=== PATIENT | female | born 1985 | race Caucasian/White ===

== ENCOUNTER → 2017-03-01 | Outpatient (CLI) | payer OTHER | END | disposition home or self-care (01) | LOC: RAD 09:48 → MERGE 09:48 | PROVIDERS: ATTEND Specialist | DX: T83.32XA Displacement of intrauterine contraceptive device, initial encounter (principal); Q51.2 Other doubling of uterus | CPT/HCPCS: 72170; 74022; 74176 ==

== ENCOUNTER 2017-03-17 09:51 | Observation (INO) | payer OTHER ==
[2017-03-16 12:24] LABS: HEMATOCRIT 42.9 % (34.6-47.8); HEMOGLOBIN 14.1 g/dL (11.7-16.4); WHITE BLOOD COUNT 7.9 x10^3/uL (3.4-10)
[~2017-03-17] VITALS: Ht 162.6 cm; Wt 49.1 kg
[~2017-03-17 09:51] MED LIST: HYDR-3240 PO; IBUP800T PO; LEVO50TA5 PO; METH750T87 PO
[2017-03-17] MEDS ORDERED: SCOPOLAMINE PATCH, 1.5MG PATCH.TD72 TD ONE (11:00)
[2017-03-17] MEDS ORDERED: KETAMINE 10 MG/ML, 20ML ONE (11:18)
[2017-03-17] MEDS ORDERED: MIDAZOLAM 1 MG/ML, 2ML ONE (11:19)
[2017-03-17] MEDS ORDERED: FENTANYL PF 250 MCG/5ML ONE (11:19)
[2017-03-17] MEDS ORDERED: BUPIVACAINE/PF 0.25% ONE (11:52)
[2017-03-17] MEDS ORDERED: EPINEPHRINE 1 MG/ML, 1ML ONE (11:52)
[2017-03-17] MEDS ORDERED: DEXAMETHASONE 4 MG/ML, 1ML ONE (12:28)
[2017-03-17] MEDS ORDERED: PROPOFOL 10 MG/ML, 50ML ONE (12:28)
[2017-03-17] MEDS ORDERED: PROPOFOL 10 MG/ML, 20ML ONE (12:28)
[2017-03-17] MEDS ORDERED: ONDANSETRON 2MG/ML, 2ML ONE ×2 (12:28→13:30)
[2017-03-17] MEDS ORDERED: SUCCINYLCHOLINE 20 MG/ML, 10ML ONE (12:28)
[2017-03-17] MEDS ORDERED: CEFAZOLIN 1,000 MG ONE (12:28)
[2017-03-17] MEDS ORDERED: ROCURONIUM 10 MG/ML ONE (12:28)
[2017-03-17] MEDS ORDERED: BUPIVACAINE/PF-EPI 0.25% 1:200K IM ONE (12:49)
[2017-03-17] MEDS ORDERED: FENTANYL PF 100 MCG/2ML ONE (13:28)
[2017-03-17] MEDS ORDERED: OXYcodone 5 MG/5 ML ORAL.SOL UDC ONE (13:28)
[2017-03-17] MEDS ORDERED: HYDROmorphone 1 MG/ML, 1ML IV PRN (13:30)
[2017-03-17] MEDS ORDERED: KETOROLAC 30 MG/1 ML IV PRN (13:30)
[2017-03-17] MEDS ORDERED: PROMETHAZINE 25 MG/ML, 1ML IV PRN (13:30)
[2017-03-17] MEDS ORDERED: OXYcodone 5 MG/5 ML ORAL.SOL UDC PO PRN (13:30)
[2017-03-17] MEDS ORDERED: ACETAMINOPHEN 325 MG TABLET PO PRN (13:30)
[2017-03-17] MEDS: FENTANYL PF 100 MCG/2ML IV PRN ×2 (13:36→13:50)
[2017-03-17] MEDS ORDERED: MEPERIDINE/PF 25MG/0.5ML ONE (13:50)
[2017-03-17] MEDS ORDERED: MEPERIDINE/PF 25MG/0.5ML IVPush PRN (14:00)
[2017-03-17] MEDS ORDERED: ONDANSETRON 2MG/ML, 2ML IVPush ONE (14:00)
[2017-03-17] MEDS ORDERED: DOCU-30 PO (14:37)
[2017-03-17] MEDS ORDERED: OXYC-302 PO (14:37)
[2017-03-17] MEDS ORDERED: IBUP-1222 PO (14:38)
[2017-03-17] MEDS ORDERED: PROMETHAZINE 12.5 MG SUPP PR ONE (15:00)
[2017-03-17] MEDS ORDERED: ONDANSETRON 2MG/ML, 2ML IV PRN (15:00)
[2017-03-17] MEDS ORDERED: OXYcodone/APAP 5/325MG TABLET PO PRN (15:00)
[2017-03-17] MEDS ORDERED: IBUPROFEN 800 MG TABLET PO PRN (15:00)
[2017-03-17] MEDS ORDERED: morphine SULFATE 10 MG/ML, 1ML IV PRN (15:00)
[2017-03-17] MEDS ORDERED: HYDROcodone/APAP 5/325 TABLET PO PRN (15:00)
[2017-03-18] MEDS ORDERED: LEVOTHYROXINE 50 MCG TABLET PO SCH (06:00)
== END 2017-03-17 16:30 | disposition home or self-care (01) ==
LOC: OR 09:51 → 4NOR 10:04 → OR 14:22 → 4NOR 14:22
PROVIDERS: ADMIT Obstetrics & Gynecology; ATTEND Obstetrics & Gynecology
DX: Q87.0 Congenital malformation syndromes predominantly affecting facial appearance (principal); Q51.2 Other doubling of uterus; Z97.5 Presence of (intrauterine) contraceptive device; N80.9 Endometriosis, unspecified
CPT/HCPCS: 36415; 49329; 81003; 84703; 85025; 88300; 96374; G0378; J0171; J2175; J2250; J2270; J2405; J3010; J3490; J0690; J1100; J2704; J0330